=== PATIENT | female | born 1980 | race African-American/Black ===

== ENCOUNTER 2016-12-16 13:15 | Emergency (ER) | payer OTHER ==
[~2016-12-16] VITALS: Ht 162.6 cm; Wt 75.0 kg
[2016-12-16] MEDS ORDERED: DIPHENHYDRAMINE 50MG CAPSULE PO ONE (15:30)
[2016-12-16] MEDS ORDERED: METHYLPREDNISOLONE SOD SUCC 125 MG/2 ML VIAL IM ONE (15:30)
[2016-12-16] MEDS ORDERED: FAMOTIDINE 20MG TABLET PO ONE (15:30)
[2016-12-16 16:35] VITALS: BP 121/69
[2016-12-16] MEDS ORDERED: HYDROXYZINE 25MG TABLET PO ONE (16:45)
== END 2016-12-16 17:51 | disposition home or self-care (01) ==
LOC: ER 16:29
DX: L50.0 Allergic urticaria (principal); F17.210 Nicotine dependence, cigarettes, uncomplicated
CPT/HCPCS: 81025; 96372; 99284; J2930; Q0163

== ENCOUNTER 2016-12-24 12:14 | Emergency (ER) | payer OTHER ==
[~2016-12-24] VITALS: Ht 167.6 cm; Wt 68.0 kg
[2016-12-24] MEDS ORDERED: SODIUM CHLORIDE 0.9% 1,000 ML IV SCH (13:06)
[2016-12-24] MEDS ORDERED: KETOROLAC 30MG/ML VIAL IV ONE (13:15)
[2016-12-24] MEDS ORDERED: FAMOTIDINE 20MG/2ML VIAL IV ONE (13:15)
[2016-12-24] MEDS ORDERED: ONDANSETRON HCL 4MG/2ML VIAL IV ONE (13:15)
[2016-12-24] MEDS ORDERED: METHYLPREDNISOLONE SOD SUCC 125 MG/2 ML VIAL IV ONE (13:15)
[2016-12-24] MEDS ORDERED: EPINEPHRINE 1:1000 1 MG/ML AMP IM ONE (13:15)
[2016-12-24] MEDS ORDERED: MORPHINE SULFATE 4 MG/ML CPJ (NOT FOR IM USE) IV ONE (13:15)
[2016-12-24] MEDS ORDERED: DIPHENHYDRAMINE 50MG/ML VIAL IV ONE (13:15)
[2016-12-24 13:25] LABS: BASOPHILS % 0.2 % (0.0-2.0); EOSINOPHILS % 0.1 % (0.0-5.0); HEMATOCRIT. 36.7 % (36.0-48.0); HEMOGLOBIN. 11.7 g/dL (12.0-16.0); LYMPHOCYTES % 36.1 % (20.0-50.0); MEAN CORPUSCULAR HEMOGLOBIN 26.6 pg (28.0-32.0); MEAN CORPUSCULAR HGB CONC 31.9 g/dL (31.0-37.0); MEAN CORPUSCULAR VOLUME 83.6 fL (81.0-99.0); MEAN PLATELET VOLUME 7.9 fl (7.4-10.4); MONOCYTES % 1.3 % (2.0-8.0); NEUTROPHILS % 62.3 % (40.0-76.0); PLATELET 461 x1000/uL (130-400); RED BLOOD CELL COUNT 4.39 mill/uL (4.2-5.4); WHITE BLOOD COUNT 18.6 x1000/uL (4.5-11.0)
[2016-12-24 13:42] LABS: ALANINE AMINOTRANSFERASE 19 IU/L (13-61); ALBUMIN 3.2 g/dL (3.4-5.0); ANION GAP 14; CARBON DIOXIDE 26 mEq/L (21-32); CHLORIDE 103 mEq/L (98-107); INDEX HEMOLYSI 1 (1-3); INDEX ICTERIC 1 (1-4); INDEX LIPEMIC 1 (1-3); TROPONIN I < 0.02 ng/mL (0.00-0.04); UREA NITROGEN BLOOD 12 mg/dL (7-21); eGFR > 60 mL/min (>60)
[2016-12-24 13:50] LABS: HCG SCREEN NEGATIVE
[2016-12-24 16:33] LABS: CLARITY URINE TURBID (CLEAR); COLOR URINE YELLOW (YELLOW); GLUCOSE URINE NEGATIVE (NEGATIVE); KETONES URINE TRACE (NEGATIVE); LEUKOCYTE ESTERASE URINE NEGATIVE (NEGATIVE); NITRITE URINE NEGATIVE (NEGATIVE); OCCULT BLOOD URINE 3+ (NEGATIVE); PH URINE 5.5 (4.5-8.0); PROTEIN URINE 1+ (NEGATIVE); SPECIFIC GRAVITY URINE 1.022 (1.005-1.030); UROBILINOGEN URINE 0.2 E.U./dL (0.2-1.0)
[2016-12-24 16:43] LABS: *AMPHETAMINES SCREEN URINE NEGATIVE (NEGATIVE); *BARBITURATES SCREEN URINE NEGATIVE (NEGATIVE); *BENZODIAZEPINES SCREEN URINE NEGATIVE (NEGATIVE); *COCAINE SCREEN URINE NEGATIVE (NEGATIVE); CANNABINOID URINE SCREEN NEGATIVE (NEGATIVE); METHADONE URINE SCREEN NEGATIVE (NEGATIVE); PHENCYCLIDINE URINE SCREEN NEGATIVE (NEGATIVE)
[2016-12-24 16:46] LABS: ECSTASY MDMA SCREEN URINE CONF.TEST INDICATED (NEGATIVE); OPIATES URINE SCREEN PRESUMTIVE POSITIVE (NEGATIVE)
[2016-12-24 16:49] LABS: BACTERIA URINE 4+; RBC URINE 15-25 /hpf (0-2); SQUAMOUS EPITHELIAL CELL URINE 2+ /lpf (RARE/1+)
[2016-12-24 17:17] VITALS: BP 110/62
== END 2016-12-24 17:22 | disposition home or self-care (01) ==
LOC: ER 12:20
DX: L50.0 Allergic urticaria (principal); D72.829 Elevated white blood cell count, unspecified
CPT/HCPCS: 36415; 80053; 80305; 81001; 84484; 84703; 85025; 93005; 96361; 96372; 96374; 96375; 99285; J0171; J1200; J1885; J2270; J2405; J2930; J3490; J7030; Z7610

== ENCOUNTER 2018-12-01 22:58 | Emergency (ER) | payer OTHER ==
[~2018-12-01] VITALS: Ht 162.6 cm; Wt 89.0 kg
[2018-12-02] MEDS ORDERED: DIPHENHYDRAMINE 50MG/ML VIAL IV ONE (01:00)
[2018-12-02] MEDS ORDERED: METHYLPREDNISOLONE SOD SUCC 125 MG/2 ML VIAL IV ONE (01:00)
[2018-12-02] MEDS ORDERED: FAMOTIDINE 20MG/2ML VIAL IV ONE (01:00)
[2018-12-02] MEDS ORDERED: SODIUM CHLORIDE 0.9% 1,000 ML IV ONE (01:15)
[2018-12-02 01:20] LABS: CLARITY URINE CLOUDY (CLEAR); COLOR URINE YELLOW (YELLOW); KETONES URINE NEGATIVE (NEGATIVE); LEUKOCYTE ESTERASE URINE NEGATIVE (NEGATIVE); NITRITE URINE POSITIVE (NEGATIVE); OCCULT BLOOD URINE NEGATIVE (NEGATIVE); PH URINE 5.5 (4.5-8.0); PROTEIN URINE NEGATIVE (NEGATIVE); SPECIFIC GRAVITY URINE 1.027 (1.005-1.030); UROBILINOGEN URINE 0.2 E.U./dL (0.2-1.0)
[2018-12-02 02:29] VITALS: BP 130/78
== END 2018-12-02 02:35 | disposition home or self-care (01) ==
LOC: ER 22:58
DX: L50.0 Allergic urticaria (principal)
CPT/HCPCS: 81003; 81025; 93005; 96361; 96374; 96375; 99284; J1200; J2930; J3490; J7030; Z7610

== ENCOUNTER 2018-12-09 05:16 | Emergency (ER) | payer OTHER ==
[~2018-12-09] VITALS: Ht 165.1 cm; Wt 89.0 kg
[2018-12-09] MEDS ORDERED: SODIUM CHLORIDE 0.9% 1,000 ML IV SCH (06:24)
[2018-12-09] MEDS ORDERED: DIPHENHYDRAMINE 50MG/ML VIAL IV ONE (06:30)
[2018-12-09] MEDS ORDERED: METHYLPREDNISOLONE SOD SUCC 125 MG/2 ML VIAL IV ONE (06:30)
[2018-12-09] MEDS ORDERED: ONDANSETRON HCL 4MG/2ML INJ IV ONE (06:30)
[2018-12-09] MEDS ORDERED: FAMOTIDINE 20MG/2ML VIAL IV ONE (06:30)
[2018-12-09 10:11] VITALS: BP 130/82
== END 2018-12-09 10:14 | disposition home or self-care (01) ==
LOC: ER 05:16
DX: L50.9 Urticaria, unspecified (principal); K29.00 Acute gastritis without bleeding; Z91.010 Allergy to peanuts; Z91.018 Allergy to other foods
CPT/HCPCS: 81025; 96361; 96374; 96375; 99283; J1200; J2405; J2930; J3490; Z7610

== ENCOUNTER 2019-04-18 11:39 | Emergency (ER) | payer OTHER ==
[~2019-04-18] VITALS: Ht 165.1 cm; Wt 87.0 kg
[2019-04-18] MEDS ORDERED: ACETAMINOPHEN 500MG TABLET PO ONE (12:15)
[2019-04-18 12:47] VITALS: BP 124/76
== END 2019-04-18 12:49 | disposition home or self-care (01) ==
LOC: ER 12:00
DX: T78.49XA Other allergy, initial encounter (principal); M79.89 Other specified soft tissue disorders; F17.200 Nicotine dependence, unspecified, uncomplicated; Z91.010 Allergy to peanuts; Z91.018 Allergy to other foods
CPT/HCPCS: 81025; 99283

== ENCOUNTER 2019-04-23 18:45 | Emergency (ER) | payer OTHER ==
[~2019-04-23] VITALS: Ht 167.6 cm; Wt 73.0 kg
[2019-04-23] MEDS ORDERED: METHYLPREDNISOLONE SOD SUCC 125 MG/2 ML VIAL IV ONE (21:00)
[2019-04-23] MEDS ORDERED: FAMOTIDINE 20MG/2ML VIAL IV ONE (21:00)
[2019-04-23] MEDS ORDERED: SODIUM CHLORIDE 0.9% 1,000 ML IV ONE (21:00)
[2019-04-23] MEDS ORDERED: DIPHENHYDRAMINE 50MG/ML VIAL IV ONE (21:00)
[2019-04-23 23:04] VITALS: BP 135/84
== END 2019-04-24 01:19 | disposition home or self-care (01) ==
LOC: ER 18:45
DX: L50.0 Allergic urticaria (principal); Z91.010 Allergy to peanuts; Z91.018 Allergy to other foods
CPT/HCPCS: 96374; 96375; 99283; J1200; J2930; J3490; J7030

== ENCOUNTER 2019-05-12 16:37 | Emergency (ER) | payer OTHER ==
[~2019-05-12] VITALS: Ht 175.3 cm; Wt 95.0 kg
[2019-05-12] MEDS ORDERED: DIPHENHYDRAMINE 50MG/ML VIAL IV ONE (17:45)
[2019-05-12] MEDS ORDERED: METHYLPREDNISOLONE SOD SUCC 125 MG/2 ML VIAL IV ONE (17:45)
[2019-05-12] MEDS ORDERED: FAMOTIDINE 20MG/2ML VIAL IV ONE (17:45)
[2019-05-12] MEDS ORDERED: SODIUM CHLORIDE 0.9% 1,000 ML IV ONE (17:45)
[2019-05-12 18:10] LABS: BASOPHILS % 0.1 % (0.0-2.0); EOSINOPHILS % 0.1 % (0.0-5.0); HEMATOCRIT. 41.5 % (36.0-48.0); HEMOGLOBIN. 13.2 g/dL (12.0-16.0); LYMPHOCYTES % 33.1 % (20.0-50.0); MEAN CORPUSCULAR HEMOGLOBIN 26.7 pg (28.0-32.0); MEAN CORPUSCULAR VOLUME 84.2 fL (81.0-99.0); MEAN PLATELET VOLUME 7.8 fl (7.4-10.4); MONOCYTES % 2.3 % (2.0-8.0); NEUTROPHILS % 64.4 % (40.0-76.0); PLATELET 351 x1000/uL (130-400); RED BLOOD CELL COUNT 4.93 mill/uL (4.2-5.4)
[2019-05-12 18:14] LABS: CHLORIDE 102 mEq/L (98-107)
[2019-05-12 21:20] VITALS: BP 112/63
== END 2019-05-12 22:48 | disposition home or self-care (01) ==
LOC: ER 16:37
DX: L50.0 Allergic urticaria (principal); Z91.010 Allergy to peanuts; Z91.018 Allergy to other foods
CPT/HCPCS: 36415; 80053; 85025; 96374; 96375; 99283; J1200; J2930; J3490; J7030

== ENCOUNTER 2020-01-29 19:04 | Emergency (ER) | payer OTHER ==
[~2020-01-29] VITALS: Ht 167.6 cm; Wt 90.0 kg
[2020-01-29] MEDS ORDERED: METHYLPREDNISOLONE SOD SUCC 125 MG/2 ML VIAL IV ONE (20:30)
[2020-01-29] MEDS ORDERED: DIPHENHYDRAMINE 50MG/ML VIAL IV ONE (20:30)
[2020-01-29] MEDS ORDERED: FAMOTIDINE 20MG/2ML VIAL IV ONE (20:30)
[2020-01-29] MEDS ORDERED: ONDANSETRON HCL 4MG/2ML INJ IV ONE (21:00)
[2020-01-29] MEDS ORDERED: SODIUM CHLORIDE 0.9% 1,000 ML IV ONE (21:00)
[2020-01-29 23:47] VITALS: BP 138/79
== END 2020-01-29 23:48 | disposition home or self-care (01) ==
LOC: ER 19:04
DX: L50.0 Allergic urticaria (principal); Z91.018 Allergy to other foods; Z91.010 Allergy to peanuts; T38.0X5A Adverse effect of glucocorticoids and synthetic analogues, initial encounter; Y92.018 Other place in single-family (private) house as the place of occurrence of the external cause
CPT/HCPCS: 96374; 96375; 99284; J1200; J2405; J2930; J3490; J7030

== ENCOUNTER 2020-02-02 22:11 | Emergency (ER) | payer OTHER ==
[~2020-02-02] VITALS: Ht 165.1 cm; Wt 90.0 kg
[2020-02-02] MEDS ORDERED: SODIUM CHLORIDE 0.9% 1,000 ML IV SCH (23:24)
[2020-02-02] MEDS ORDERED: DEXAMETHASONE 10 MG/ML VIAL IV ONE (23:30)
[2020-02-02] MEDS ORDERED: FAMOTIDINE 20MG/2ML VIAL IV ONE (23:30)
[2020-02-02] MEDS ORDERED: DIPHENHYDRAMINE 50MG/ML VIAL IV ONE (23:30)
[2020-02-02] MEDS ORDERED: MORPHINE SULFATE 4 MG/ML CPJ (NOT FOR IM USE) IV ONE (23:30)
[2020-02-02] MEDS ORDERED: ONDANSETRON HCL 4MG/2ML INJ IV ONE (23:30)
[2020-02-03 02:33] VITALS: BP 130/70
== END 2020-02-03 02:34 | disposition home or self-care (01) ==
LOC: ER 22:11
DX: L50.0 Allergic urticaria (principal); T78.49XA Other allergy, initial encounter; K21.9 Gastro-esophageal reflux disease without esophagitis; Z91.010 Allergy to peanuts; Z91.018 Allergy to other foods; X58.XXXA Exposure to other specified factors, initial encounter
CPT/HCPCS: 96374; 96375; 99284; J1100; J1200; J2270; J2405; J3490

== ENCOUNTER 2020-02-09 11:11 | Emergency (ER) | payer OTHER ==
[~2020-02-09] VITALS: Ht 165.1 cm; Wt 77.0 kg
[2020-02-09] MEDS ORDERED: DEXAMETHASONE 10 MG/ML VIAL IV ONE (11:30)
[2020-02-09] MEDS ORDERED: FAMOTIDINE 20MG/2ML VIAL IV ONE (11:30)
[2020-02-09] MEDS ORDERED: DIPHENHYDRAMINE 50MG/ML VIAL IV ONE (11:30)
[2020-02-09 16:03] VITALS: BP 119/67
== END 2020-02-09 16:11 | disposition home or self-care (01) ==
LOC: ER 11:11
DX: L50.0 Allergic urticaria (principal); Z91.018 Allergy to other foods; Z91.010 Allergy to peanuts; T78.49XA Other allergy, initial encounter; X58.XXXA Exposure to other specified factors, initial encounter
CPT/HCPCS: 81025; 96374; 96375; 99285; J1100; J1200; J3490

== ENCOUNTER 2020-02-19 10:58 | Emergency (ER) | payer OTHER ==
[~2020-02-19] VITALS: Ht 167.6 cm; Wt 100.0 kg
[2020-02-19] MEDS ORDERED: EPINEPHRINE 1:1000 1 MG/ML AMP INJ ONE (11:45)
[2020-02-19] MEDS ORDERED: METHYLPREDNISOLONE SOD SUCC 125 MG/2 ML VIAL IV ONE (11:45)
[2020-02-19] MEDS ORDERED: DIPHENHYDRAMINE 50MG/ML VIAL IV ONE (12:45)
[2020-02-19] MEDS ORDERED: VISCOUS LIDOCAINE 2% 15 ML UDC MM ONE (12:45)
[2020-02-19] MEDS ORDERED: MAGNESIUM/ALUMINUM HYDROXIDE/SIMETHICONE 30ML UDC PO ONE (12:45)
[2020-02-19] MEDS ORDERED: FAMOTIDINE 20MG/2ML VIAL IV SCH (12:45)
[2020-02-19 14:18] VITALS: BP 125/62
== END 2020-02-19 14:20 | disposition home or self-care (01) ==
LOC: ER 11:20
DX: L50.8 Other urticaria (principal); F17.210 Nicotine dependence, cigarettes, uncomplicated; Z91.010 Allergy to peanuts; Z91.018 Allergy to other foods
CPT/HCPCS: 96374; 96375; 99285; J1200; J2930; J3490

== ENCOUNTER 2020-04-13 23:54 | Emergency (ER) | payer OTHER ==
[~2020-04-13] VITALS: Ht 162.6 cm; Wt 96.0 kg
[2020-04-13 23:56] VITALS: BP 159/88
[2020-04-14] MEDS ORDERED: DEXAMETHASONE 10 MG/ML VIAL IV ONE (00:30)
[2020-04-14] MEDS ORDERED: SODIUM CHLORIDE 0.9% 500 ML IV ONE (00:30)
[2020-04-14] MEDS ORDERED: DIPHENHYDRAMINE 50MG/ML VIAL IV ONE (00:30)
[2020-04-14] MEDS ORDERED: MAGNESIUM/ALUMINUM HYDROXIDE/SIMETHICONE 30ML UDC PO ONE (01:15)
[2020-04-14] MEDS ORDERED: VISCOUS LIDOCAINE 2% 15 ML UDC PO ONE (01:15)
[2020-04-14] MEDS ORDERED: DIPHENHYDRAMINE 50MG/ML VIAL IM ONE (01:45)
== END 2020-04-14 03:16 | disposition home or self-care (01) ==
LOC: ER 23:54
DX: T78.49XA Other allergy, initial encounter (principal); X58.XXXA Exposure to other specified factors, initial encounter; Z91.018 Allergy to other foods
CPT/HCPCS: 93005; 96361; 96372; 96374; 96375; 99284; J1100; J1200; J7040

== ENCOUNTER 2020-04-26 12:33 | Emergency (ER) | payer OTHER ==
[~2020-04-26] VITALS: Ht 165.1 cm; Wt 82.0 kg
[2020-04-26] MEDS ORDERED: ACETAMINOPHEN 325MG TABLET PO STA (14:57)
[2020-04-26] MEDS ORDERED: SODIUM CHLORIDE 0.9% 1,000 ML IV ONE (14:57)
[2020-04-26] MEDS ORDERED: FAMOTIDINE 20MG/2ML VIAL IV ONE (15:00)
[2020-04-26] MEDS ORDERED: METHYLPREDNISOLONE SOD SUCC 125 MG/2 ML VIAL IV ONE (15:00)
[2020-04-26] MEDS ORDERED: DIPHENHYDRAMINE 50MG/ML VIAL IV ONE (15:00)
[2020-04-26 15:26] LABS: BASOPHILS % 0.1 % (0.0-2.0); EOSINOPHILS % 0.2 % (0.0-5.0); HEMATOCRIT. 40.4 % (36.0-48.0); HEMOGLOBIN. 12.9 g/dL (12.0-16.0); LYMPHOCYTES % 18.8 % (20.0-50.0); MEAN CORPUSCULAR HEMOGLOBIN 26.8 pg (28.0-32.0); MEAN CORPUSCULAR VOLUME 83.9 fL (81.0-99.0); MEAN PLATELET VOLUME 8.8 fl (7.4-10.4); NEUTROPHILS % 78.9 % (40.0-76.0); PLATELET 415 x1000/uL (130-400); RED BLOOD CELL COUNT 4.81 mill/uL (4.2-5.4)
[2020-04-26 15:28] LABS: CHLORIDE 102 mEq/L (98-107)
[2020-04-26] MEDS ORDERED: ONDANSETRON HCL 4MG/2ML INJ IV ONE (15:30)
[2020-04-26 15:33] LABS: HCG SCREEN NEGATIVE
[2020-04-26 17:45] LABS: CLARITY URINE CLOUDY (CLEAR); COLOR URINE DARK YELLOW (YELLOW); KETONES URINE 1+ (NEGATIVE); LEUKOCYTE ESTERASE URINE NEGATIVE (NEGATIVE); NITRITE URINE NEGATIVE (NEGATIVE); OCCULT BLOOD URINE NEGATIVE (NEGATIVE); PROTEIN URINE TRACE (NEGATIVE); SPECIFIC GRAVITY URINE 1.034 (1.005-1.030)
[2020-04-26 18:51] VITALS: BP 123/69
== END 2020-04-26 19:31 | disposition home or self-care (01) ==
LOC: ER 12:33
DX: R10.13 Epigastric pain (principal); L50.0 Allergic urticaria; D72.829 Elevated white blood cell count, unspecified; Z03.818 Encounter for observation for suspected exposure to other biological agents ruled out; Z91.010 Allergy to peanuts; Z91.018 Allergy to other foods
CPT/HCPCS: 36415; 71045; 80053; 81003; 81025; 83605; 83690; 84145; 84703; 85025; 87040; 87086; 87635; 93005; 96374; 96375; 99285; C9803; J1200; J2930; J7030

== ENCOUNTER 2020-10-07 10:20 | Emergency (ER) | payer OTHER ==
[~2020-10-07] VITALS: Ht 165.1 cm; Wt 87.0 kg
[2020-10-07] MEDS ORDERED: CEPH500T MT (10:58)
[2020-10-07 11:19] VITALS: BP 139/94
== END 2020-10-07 11:20 | disposition home or self-care (01) ==
LOC: ER 10:20
DX: H00.014 Hordeolum externum left upper eyelid (principal); H00.034 Abscess of left upper eyelid; Z91.010 Allergy to peanuts; Z91.018 Allergy to other foods
CPT/HCPCS: 99283

== ENCOUNTER 2021-02-04 12:50 | Emergency (ER) | payer OTHER ==
[~2021-02-04] VITALS: Ht 165.1 cm; Wt 86.5 kg
[~2021-02-04 12:50] MED LIST: CEPH500T MT
[2021-02-04] MEDS ORDERED: FAMO-135 MT (13:08)
[2021-02-04] MEDS ORDERED: P20 MT (13:08)
[2021-02-04] MEDS ORDERED: HYDR-3735 MT (13:08)
[2021-02-04] MEDS ORDERED: FAMOTIDINE 20MG TABLET PO ONE (13:15)
[2021-02-04] MEDS ORDERED: HYDROXYZINE 25MG TABLET PO ONE (13:15)
[2021-02-04] MEDS ORDERED: PREDNISONE 20MG TABLET PO ONE (13:15)
[2021-02-04 14:07] VITALS: BP 159/98
== END 2021-02-04 14:12 | disposition home or self-care (01) ==
LOC: ER 13:13
DX: L50.9 Urticaria, unspecified (principal); Z91.018 Allergy to other foods
CPT/HCPCS: 99284; J7512

== ENCOUNTER 2021-02-10 23:49 | Emergency (ER) | payer OTHER ==
[~2021-02-10] VITALS: Ht 165.1 cm; Wt 89.0 kg
[~2021-02-10 23:49] MED LIST changes: +FAMO-135 MT; +HYDR-3735 MT; +P20 MT
[2021-02-11 00:03] VITALS: BP 153/97
[2021-02-11] MEDS ORDERED: DEXAMETHASONE 10 MG/ML VIAL IM SCH (00:45)
[2021-02-11] MEDS ORDERED: PANTOPRAZOLE 40MG DR TABLET PO SCH (00:45)
[2021-02-11] MEDS ORDERED: DIPHENHYDRAMINE 50MG/ML VIAL IM SCH (00:45)
[2021-02-11] MEDS ORDERED: PANT40SU PO (01:07)
[2021-02-11] MEDS ORDERED: MED4 MT (01:07)
== END 2021-02-11 01:36 | disposition home or self-care (01) ==
LOC: ER 23:49
DX: T78.40XA Allergy, unspecified, initial encounter (principal); L50.9 Urticaria, unspecified; K21.9 Gastro-esophageal reflux disease without esophagitis; Z91.018 Allergy to other foods; Z88.9 Allergy status to unspecified drugs, medicaments and biological substances; Z91.010 Allergy to peanuts; Z79.899 Other long term (current) drug therapy; Z98.890 Other specified postprocedural states; X58.XXXA Exposure to other specified factors, initial encounter
CPT/HCPCS: 96372; 99284; J1100; J1200

== ENCOUNTER 2021-02-12 18:27 | Emergency (ER) | payer OTHER ==
[~2021-02-12] VITALS: Ht 167.6 cm; Wt 82.0 kg
[~2021-02-12 18:27] MED LIST changes: +MED4 MT; +PANT40SU PO
[2021-02-12 19:45] LABS: BASOPHILS % 0.2 % (0.0-2.0); EOSINOPHILS % 0.8 % (0.0-5.0); HEMATOCRIT. 32.6 % (36.0-48.0); HEMOGLOBIN. 10.5 g/dL (12.0-16.0); LYMPHOCYTES % 20.6 % (20.0-50.0); MEAN CORPUSCULAR HEMOGLOBIN 25.9 pg (28.0-32.0); MEAN CORPUSCULAR VOLUME 80.5 fL (81.0-99.0); MEAN PLATELET VOLUME 7.6 fl (7.4-10.4); MONOCYTES % 4.8 % (2.0-8.0); NEUTROPHILS % 73.6 % (40.0-76.0); PLATELET 553 x1000/uL (130-400); RED BLOOD CELL COUNT 4.05 mill/uL (4.2-5.4); RED CELL DISTRIBUTION WIDTH 14.7 % (11.6-14.6)
[2021-02-12 19:53] LABS: CHLORIDE 104 mEq/L (98-107)
[2021-02-12 19:57] LABS: HCG SCREEN NEGATIVE
[2021-02-12 20:20] LABS: CLARITY URINE CLEAR (CLEAR); COLOR URINE YELLOW (YELLOW); KETONES URINE NEGATIVE (NEGATIVE); LEUKOCYTE ESTERASE URINE NEGATIVE (NEGATIVE); NITRITE URINE NEGATIVE (NEGATIVE); OCCULT BLOOD URINE NEGATIVE (NEGATIVE); PH URINE 5.5 (4.5-8.0); PROTEIN URINE NEGATIVE (NEGATIVE); UROBILINOGEN URINE 0.2 E.U./dL (0.2-1.0)
[2021-02-12] MEDS ORDERED: HYDROXYZINE 25MG TABLET PO ONE (21:45)
[2021-02-12 23:30] VITALS: BP 128/76
== END 2021-02-12 19:31 | disposition left against medical advice (07) ==
LOC: ER 18:27
DX: T78.40XA Allergy, unspecified, initial encounter (principal); R21 Rash and other nonspecific skin eruption; N39.0 Urinary tract infection, site not specified; Z91.010 Allergy to peanuts; Z91.018 Allergy to other foods; Z91.09 Other allergy status, other than to drugs and biological substances; X58.XXXA Exposure to other specified factors, initial encounter
CPT/HCPCS: 36415; 80053; 81003; 84703; 85025; 99285

== ENCOUNTER 2021-05-29 10:33 | Emergency (ER) | payer OTHER ==
[~2021-05-29] VITALS: Ht 172.7 cm; Wt 90.0 kg
[2021-05-29] MEDS ORDERED: METHYLPREDNISOLONE SOD SUCC 125 MG/2 ML VIAL IV ONE (11:00)
[2021-05-29] MEDS ORDERED: SODIUM CHLORIDE 0.9% 1,000 ML IV ONE (11:00)
[2021-05-29] MEDS ORDERED: DIPHENHYDRAMINE 50MG/ML VIAL IV ONE (11:00)
[2021-05-29] MEDS ORDERED: FAMOTIDINE 20MG/2ML VIAL IV ONE (11:00)
[2021-05-29] MEDS ORDERED: P50 MT (13:20)
[2021-05-29 13:27] VITALS: BP 145/72
== END 2021-05-29 13:45 | disposition home or self-care (01) ==
LOC: ER 10:40
DX: T78.40XA Allergy, unspecified, initial encounter (principal); Z91.018 Allergy to other foods; Z91.010 Allergy to peanuts; Z79.899 Other long term (current) drug therapy; X58.XXXA Exposure to other specified factors, initial encounter
CPT/HCPCS: 96361; 96374; 96375; 99284; J1200; J2930; J3490; J7030

== ENCOUNTER 2021-08-23 19:12 | Emergency (ER) | payer OTHER ==
[~2021-08-23] VITALS: Ht 165.1 cm; Wt 83.0 kg
[~2021-08-23 19:12] MED LIST changes: +P50 MT
[2021-08-23] MEDS ORDERED: EPINEPHRINE 1:1000 1 MG/ML AMP IM ONE (20:00)
[2021-08-23] MEDS ORDERED: METHYLPREDNISOLONE SOD SUCC 125 MG/2 ML VIAL IV ONE (20:00)
[2021-08-23] MEDS ORDERED: FAMOTIDINE 20MG/2ML VIAL IV ONE (20:00)
[2021-08-23] MEDS ORDERED: MAGNESIUM/ALUMINUM HYDROXIDE/SIMETHICONE 30ML UDC PO ONE (20:15)
[2021-08-23 20:32] LABS: BASOPHILS % 0.2 % (0.0-2.0); EOSINOPHILS % 1.2 % (0.0-5.0); HEMATOCRIT. 34.5 % (36.0-48.0); LYMPHOCYTES % 32.5 % (20.0-50.0); MEAN CORPUSCULAR HEMOGLOBIN 26.3 pg (28.0-32.0); MEAN CORPUSCULAR VOLUME 82.7 fL (81.0-99.0); MEAN PLATELET VOLUME 7.4 fl (7.4-10.4); MONOCYTES % 1.8 % (2.0-8.0); NEUTROPHILS % 64.3 % (40.0-76.0); PLATELET 467 x1000/uL (130-400); RED BLOOD CELL COUNT 4.18 mill/uL (4.2-5.4); RED CELL DISTRIBUTION WIDTH 14.9 % (11.6-14.6)
[2021-08-23 20:38] LABS: CHLORIDE 108 mEq/L (98-107)
[2021-08-23 20:44] LABS: HCG SCREEN NEGATIVE
[2021-08-23 21:04] LABS: CLARITY URINE CLEAR (CLEAR); COLOR URINE YELLOW (YELLOW); KETONES URINE TRACE (NEGATIVE); LEUKOCYTE ESTERASE URINE NEGATIVE (NEGATIVE); NITRITE URINE NEGATIVE (NEGATIVE); OCCULT BLOOD URINE NEGATIVE (NEGATIVE); PROTEIN URINE NEGATIVE (NEGATIVE); SPECIFIC GRAVITY URINE 1.035 (1.005-1.030); UROBILINOGEN URINE 0.2 E.U./dL (0.2-1.0)
[2021-08-23] MEDS ORDERED: P20 MT (22:17)
[2021-08-23] MEDS ORDERED: DIPH25TA62 MT (22:17)
[2021-08-23] MEDS ORDERED: FAMO-135 MT (22:17)
[2021-08-23] MEDS ORDERED: EPIN0.3P3 IM (22:17)
[2021-08-23 22:28] VITALS: BP 139/79
== END 2021-08-23 23:49 | disposition home or self-care (01) ==
LOC: ER 19:12
DX: T78.09XA Anaphylactic reaction due to other food products, initial encounter (principal); Z87.11 Personal history of peptic ulcer disease; Z90.49 Acquired absence of other specified parts of digestive tract; Z91.010 Allergy to peanuts; Z91.018 Allergy to other foods
CPT/HCPCS: 36415; 80053; 81003; 81025; 84703; 85025; 96372; 96374; 96375; 99284; J2930; J3490

== ENCOUNTER 2021-09-03 03:36 | Emergency (ER) | payer OTHER ==
[~2021-09-03] VITALS: Ht 165.1 cm; Wt 83.0 kg
[~2021-09-03 03:36] MED LIST changes: +DIPH25TA62 MT; +EPIN0.3P3 IM
[2021-09-03] MEDS ORDERED: FAMOTIDINE 20MG TABLET PO ONE (04:00)
[2021-09-03] MEDS ORDERED: PREDNISONE 20MG TABLET PO ONE (04:00)
[2021-09-03] MEDS ORDERED: DIPHENHYDRAMINE 25MG CAPSULE PO ONE (04:00)
[2021-09-03] MEDS ORDERED: MAGNESIUM/ALUMINUM HYDROXIDE/SIMETHICONE 30ML UDC PO ONE (05:00)
[2021-09-03] MEDS ORDERED: VISCOUS LIDOCAINE 2% 15 ML UDC MM PRN (05:00)
[2021-09-03] MEDS ORDERED: FAMO-135 MT (05:58)
[2021-09-03] MEDS ORDERED: P20 MT (05:58)
[2021-09-03 06:20] VITALS: BP 145/75
== END 2021-09-03 06:22 | disposition home or self-care (01) ==
LOC: ER 03:36
DX: L50.0 Allergic urticaria (principal); Z91.010 Allergy to peanuts; Z91.018 Allergy to other foods
CPT/HCPCS: 99284; J7512; Q0163

== ENCOUNTER 2021-12-05 10:02 | Emergency (ER) | payer OTHER ==
[~2021-12-05] VITALS: Ht 165.1 cm; Wt 83.0 kg
[2021-12-05] MEDS ORDERED: VISCOUS LIDOCAINE 2% 15 ML UDC PO STA (10:46)
[2021-12-05] MEDS ORDERED: METOCLOPRAMIDE HCL 10MG/2ML VIAL IV STA (10:46)
[2021-12-05] MEDS ORDERED: MAGNESIUM/ALUMINUM HYDROXIDE/SIMETHICONE 30ML UDC PO STA (10:46)
[2021-12-05] MEDS ORDERED: METHYLPREDNISOLONE SOD SUCC 125 MG/2 ML VIAL IV ONE (11:00)
[2021-12-05] MEDS ORDERED: SODIUM CHLORIDE 0.9% 1,000 ML IV ONE (11:00)
[2021-12-05 11:25] LABS: BASOPHILS % 0.3 % (0.0-2.0); EOSINOPHILS % 0.7 % (0.0-5.0); HEMOGLOBIN. 11.4 g/dL (12.0-16.0); LYMPHOCYTES % 35.5 % (20.0-50.0); MEAN CORPUSCULAR HEMOGLOBIN 25.8 pg (28.0-32.0); MEAN CORPUSCULAR VOLUME 79.4 fL (81.0-99.0); MEAN PLATELET VOLUME 7.8 fl (7.4-10.4); MONOCYTES % 2.3 % (2.0-8.0); NEUTROPHILS % 61.2 % (40.0-76.0); PLATELET 591 x1000/uL (130-400); RED BLOOD CELL COUNT 4.41 mill/uL (4.2-5.4); RED CELL DISTRIBUTION WIDTH 14.6 % (11.6-14.6)
[2021-12-05 12:09] LABS: CHLORIDE 107 mEq/L (98-107)
[2021-12-05 12:21] LABS: B-HCG QUANTITATIVE < 1 mIU/mL (<3)
[2021-12-05] MEDS ORDERED: MAGNESIUM 1 G PREMIX 100 ML IV ONE (12:45)
[2021-12-05] MEDS ORDERED: POTASSIUM CHLORIDE 20MEQ/PACKET PO ONE (12:45)
[2021-12-05] MEDS ORDERED: POTASSIUM CHLORIDE INJ 40 MEQ in DEXT 5% WATER 250 ML IV ONE (12:45)
[2021-12-05] MEDS ORDERED: KCL 20MEQ/100ML X 2 FOR TOTAL KCL 40MEQ/200ML IV SCH (14:00)
[2021-12-05 20:17] LABS: CLARITY URINE CLEAR (CLEAR); COLOR URINE YELLOW (YELLOW); KETONES URINE TRACE (NEGATIVE); LEUKOCYTE ESTERASE URINE NEGATIVE (NEGATIVE); NITRITE URINE NEGATIVE (NEGATIVE); OCCULT BLOOD URINE NEGATIVE (NEGATIVE); PH URINE 6.5 (4.5-8.0); PROTEIN URINE NEGATIVE (NEGATIVE)
[2021-12-05 20:41] VITALS: BP 133/82
== END 2021-12-05 21:00 | disposition short-term general hospital (02) ==
LOC: ER 10:02
DX: T78.40XA Allergy, unspecified, initial encounter (principal); E87.6 Hypokalemia; K21.9 Gastro-esophageal reflux disease without esophagitis; X58.XXXA Exposure to other specified factors, initial encounter; Z91.018 Allergy to other foods; Z91.010 Allergy to peanuts
CPT/HCPCS: 36415; 80053; 81003; 83735; 84702; 85025; 87426; 93005; 96361; 96365; 96366; 96368; 96375; 99285; J2765; J2930; J3475; J3480; J7030; J7060

== ENCOUNTER 2021-12-09 06:15 | Emergency (ER) | payer OTHER ==
[~2021-12-09] VITALS: Ht 165.1 cm; Wt 83.0 kg
[2021-12-09] MEDS ORDERED: PREDNISONE 20MG TABLET PO ONE (07:45)
[2021-12-09] MEDS ORDERED: DIPHENHYDRAMINE 50MG CAPSULE PO ONE (07:45)
[2021-12-09] MEDS ORDERED: FAMOTIDINE 20MG TABLET PO ONE (07:45)
[2021-12-09] MEDS ORDERED: P50 MT (10:37)
[2021-12-09 11:01] VITALS: BP 128/86
== END 2021-12-09 11:04 | disposition home or self-care (01) ==
LOC: ER 06:15
DX: T78.49XA Other allergy, initial encounter (principal); X58.XXXA Exposure to other specified factors, initial encounter; K21.9 Gastro-esophageal reflux disease without esophagitis; Z79.899 Other long term (current) drug therapy
CPT/HCPCS: 99284; J7512; Q0163

== ENCOUNTER 2022-02-02 07:50 | Emergency (ER) | payer OTHER ==
[~2022-02-02] VITALS: Ht 167.6 cm; Wt 83.0 kg
[2022-02-02 07:58] VITALS: BP 129/88
[2022-02-02] MEDS ORDERED: METHYLPREDNISOLONE SOD SUCC 125 MG/2 ML VIAL IV STA (08:51)
[2022-02-02] MEDS ORDERED: SODIUM CHLORIDE 0.9% 1,000 ML IV ONE (09:00)
[2022-02-02] MEDS ORDERED: DIPHENHYDRAMINE 50MG/ML VIAL IV ONE (09:00)
[2022-02-02] MEDS ORDERED: FAMOTIDINE 20MG/2ML VIAL IV ONE (09:15)
[2022-02-02] MEDS ORDERED: MAGNESIUM/ALUMINUM HYDROXIDE/SIMETHICONE 30ML UDC PO ONE (09:45)
[2022-02-02] MEDS ORDERED: P50 MT (13:08)
== END 2022-02-02 13:57 | disposition home or self-care (01) ==
LOC: ER 08:28
DX: L50.0 Allergic urticaria (principal); K21.9 Gastro-esophageal reflux disease without esophagitis; Z88.6 Allergy status to analgesic agent; Z91.018 Allergy to other foods; Z91.010 Allergy to peanuts
CPT/HCPCS: 93005; 96361; 96374; 96375; 99284; J1200; J2930; J3490; J7030

== ENCOUNTER 2022-06-27 20:05 | Emergency (ER) | payer OTHER ==
[~2022-06-27] VITALS: Ht 165.1 cm; Wt 95.0 kg
[2022-06-27 20:29] VITALS: BP 133/91
== END 2022-06-27 22:30 | disposition left against medical advice (07) ==
LOC: ER 20:40
DX: Z53.21 Procedure and treatment not carried out due to patient leaving prior to being seen by health care provider (principal)

== ENCOUNTER 2022-11-10 14:18 | Emergency (ER) | payer OTHER ==
[~2022-11-10] VITALS: Ht 165.1 cm; Wt 93.0 kg
[2022-11-10 14:31] VITALS: BP 151/102
[2022-11-10] MEDS ORDERED: P20 PO (15:12)
[2022-11-10] MEDS ORDERED: ONDA4TAB11 PO (15:12)
[2022-11-10] MEDS ORDERED: VISCOUS LIDOCAINE 2% 15 ML UDC MM STA (15:12)
[2022-11-10] MEDS ORDERED: XLV PO (15:12)
[2022-11-10] MEDS ORDERED: MAG-55 PO (15:12)
[2022-11-10] MEDS ORDERED: ONDANSETRON 4MG ODT PO ONE (15:15)
[2022-11-10] MEDS ORDERED: MAGNESIUM/ALUMINUM HYDROXIDE/SIMETHICONE 30ML UDC PO ONE (15:15)
== END 2022-11-10 15:28 | disposition home or self-care (01) ==
LOC: ER 14:18
DX: L50.9 Urticaria, unspecified (principal); K21.9 Gastro-esophageal reflux disease without esophagitis; Z79.899 Other long term (current) drug therapy
CPT/HCPCS: 99283; Q0162

== ENCOUNTER 2023-05-08 00:34 | Emergency (ER) | payer OTHER ==
[~2023-05-08] VITALS: Ht 165.1 cm; Wt 52.9 kg
[~2023-05-08 00:34] MED LIST changes: +MAG-55 PO; +ONDA4TAB11 PO; +P20 PO; +XLV PO
[2023-05-08 00:50] VITALS: BP 139/77; O2SAT 99
[2023-05-08] MEDS ORDERED: METHYLPREDNISOLONE 4MG TABLET PO ONE (01:30)
[2023-05-08 01:34] LABS: CLARITY URINE CLEAR (CLEAR); COLOR URINE YELLOW (YELLOW); GLUCOSE URINE NEGATIVE (NEGATIVE); KETONES URINE TRACE (NEGATIVE); LEUKOCYTE ESTERASE URINE NEGATIVE (NEGATIVE); NITRITE URINE NEGATIVE (NEGATIVE); OCCULT BLOOD URINE NEGATIVE (NEGATIVE); PH URINE 5.5 (4.5-8.0); PROTEIN URINE NEGATIVE (NEGATIVE); SPECIFIC GRAVITY URINE 1.032 (1.005-1.030)
[2023-05-08 02:17] VITALS: PULSE 90; RESP 18; TEMP 98.3
== END 2023-05-08 02:18 | disposition home or self-care (01) ==
LOC: ER 00:34
DX: T78.40XA Allergy, unspecified, initial encounter (principal); Z91.018 Allergy to other foods; Z88.6 Allergy status to analgesic agent; Z88.5 Allergy status to narcotic agent; Z88.8 Allergy status to other drugs, medicaments and biological substances; Z91.010 Allergy to peanuts; Z79.899 Other long term (current) drug therapy; Z98.890 Other specified postprocedural states; X58.XXXA Exposure to other specified factors, initial encounter
CPT/HCPCS: 99283; 81003; 81025; J7509

== ENCOUNTER 2025-02-04 20:44 | Emergency (ER) | payer OTHER ==
[~2025-02-04] VITALS: Ht 165.1 cm; Wt 83.1 kg
[~2025-02-04 20:44] MED LIST changes: -MED4 MT; +METH4TAB95 MT; +ONDA-239 PO; -ONDA4TAB11 PO
[2025-02-04 21:07] VITALS: O2SAT 100
[2025-02-04] MEDS ORDERED: IBUP-2029 MT (22:11)
[2025-02-04] MEDS: IBUPROFEN 600MG TABLET PO ONE (22:16)
[2025-02-04 22:35] VITALS: BP 160/101; PULSE 85; RESP 18; TEMP 36.8; O2SAT 100
== END 2025-02-04 22:50 | disposition home or self-care (01) ==
LOC: ER 20:44
DX: S62.603A Fracture of unspecified phalanx of left middle finger, initial encounter for closed fracture (principal); Z88.5 Allergy status to narcotic agent; Z79.899 Other long term (current) drug therapy; W23.0XXA Caught, crushed, jammed, or pinched between moving objects, initial encounter; Y93.89 Activity, other specified; Y92.89 Other specified places as the place of occurrence of the external cause; Y99.8 Other external cause status
CPT/HCPCS: 29130; 73130; 99283

== ENCOUNTER 2025-06-16 16:44 | Emergency (ER) | payer OTHER ==
[~2025-06-16] VITALS: Ht 165.1 cm; Wt 88.0 kg
[~2025-06-16 16:44] MED LIST changes: +IBUP-1455 MT
[2025-06-16 16:58] VITALS: TEMP 36.7; O2SAT 100
[2025-06-16 18:29] LABS: BASOPHILS % 0.2 % (0.0-2.0); EOSINOPHILS % 1.6 % (0.0-5.0); HEMATOCRIT. 35.2 % (36.0-48.0); HEMOGLOBIN. 11.2 g/dL (12.0-16.0); LYMPHOCYTES % 26.9 % (20.0-50.0); MEAN PLATELET VOLUME 8.1 fl (7.4-10.4); MONOCYTES % 6.8 % (2.0-8.0); NEUTROPHILS % 64.5 % (40.0-76.0); PLATELET 308 x1000/uL (130-400); RED BLOOD CELL COUNT 3.96 mill/uL (4.2-5.4); RED CELL DISTRIBUTION WIDTH 14.1 % (11.6-14.6)
[2025-06-16 18:41] LABS: INR 1.0
[2025-06-16 18:47] LABS: CREATININE 0.7 mg/dL (0.6-1.0)
[2025-06-16 18:48] LABS: TROPONIN I HIGH SENSITIVITY < 4 ng/L (3.0-34); UREA NITROGEN BLOOD 6 mg/dL (9-23)
[2025-06-16 19:02] LABS: HCG SCREEN NEGATIVE
[2025-06-16 19:39] VITALS: BP 151/97; PULSE 75; RESP 13; O2SAT 100
== END 2025-06-16 19:40 | disposition home or self-care (01) ==
LOC: ER 16:44
DX: R00.2 Palpitations (principal); K21.9 Gastro-esophageal reflux disease without esophagitis; F41.9 Anxiety disorder, unspecified; R06.02 Shortness of breath; Z79.899 Other long term (current) drug therapy; Z91.018 Allergy to other foods; Z91.010 Allergy to peanuts; Z88.5 Allergy status to narcotic agent
CPT/HCPCS: 36415; 71045; 80048; 83880; 84484; 84703; 85025; 93005; 99285